=== PATIENT | male | born 1965 | race Caucasian/White ===

== ENCOUNTER → 2025-02-11 | Outpatient (CLI) | payer OTHER ==
--- NOTE | 2025-02-11 09:12 | MR ---
EXAMINATION TYPE: MR Prostate wo/w con DATE OF EXAM: 02/11/2025 COMPARISON: None. INDICATION: Elevated PSA PSA: 16.91 ng/ml in January 2025 Recent Biopsy and Date: None Pathology Report (If Applicable): n/a TECHNIQUE: Examination was performed using a 3T MRI without an endorectal coil. Multiparametric imaging was perf ormed with T2 mutliplanar sequences, axial diffusion weighted imaging and dynamic contrast enhanced i maging, utilizing 9 mL intravenous Gadobutrol gadolinium contrast. FINDINGS: PROSTATE VOLUME: 5.8 cm SI x 4.4 cm AP x 5.2 cm LR Vol= 69.5 cc PSA DENSITY: 0.24 ng/ml/cc Enlarged prostate consistent with BPH is present. Peripheral zone shows bilateral wedge-shaped areas of slightly diminished signal on ADC mapping. No areas of marked diminished signal are identified. Tr ansitional zone shows bilateral areas of nodularity. No suspicious hypointense areas are present. No areas of marked increased signal on diffusion-weighted imaging. There is mildly distended bladder without suspicious wall thickening or trabeculation. There is a lar ge fat-containing left inguinal hernia. No destructive osseous lesions are identified. IMPRESSION: Enlarged prostate consistent with BPH. A focus of clinically significant cancer is not identified. Highest Assessment Category: 2 MRI Stage: T0 N0 M0 based on review of pelvic images. False negative rates for MRI range from 5-20% depending on risk profile. Consider imaging guided random biopsy if the PSA continues to rise. Assessment Categories: 1 ? Very low (clinically significant cancer is highly unlikely to be present) 2 ? Low (clinically significant cancer is unlikely to be present) 3 ? Intermediate (the presence of clinically significant cancer is equivocal) 4 ? High (clinically significant cancer is likely to be present) 5 ? Very high (clinically significant cancer is highly likely to be present) [facility], , 02/11/2025 9:09 AM
== END | disposition home or self-care (01) ==
LOC: RADMRIMAIN 07:16
PROVIDERS: ATTEND Urology
DX: N40.0 Benign prostatic hyperplasia without lower urinary tract symptoms (principal); R97.20 Elevated prostate specific antigen [PSA]
CPT/HCPCS: 72197; A9585